=== PATIENT | male | born 1955 | race Caucasian/White ===

== ENCOUNTER 2017-09-19 09:08 | Inpatient (IN) ==
[~2017-09-19 09:08] MED LIST: ALVIMOPAN 12 MG CAPSULE PO ONE; ERTAPENEM 1,000 MG in SODIUM CHLORIDE 0.9% 50 ML IV ONE
[2017-09-19 09:42] LABS: Basophils % 0.4 % (0.0-0.8); Eosinophils # 0.2 10*3/uL (0.0-0.87); Eosinophils % 2.2 % (0.00-10.9); Hematocrit 33.7 VOL% (42.0-52.0); Hemoglobin 10.8 GM/DL (14.0-18.0); Immature Granulocytes % 0.5 %; Immature Granulocytes Absolute 0.04 #; Lymphocytes # 0.7 10*3/uL (1.4-4.0); Lymphocytes % 8.9 % (21.2-54.2); Mean Corpuscular Hemoglobin 26 PG (27-34); Mean Corpuscular Volume 81.6 FL (87-102); Mean Platelet Volume 9.4 FL (9.6-12.0); Monocytes # 0.7 10*3/uL (0.11-0.8); Monocytes % 8.7 % (1.7-12.7); Neutrophils # 6.4 10*3/uL (1.4-7.4); Neutrophils % 79.3 % (38.7-73.9); Platelet Count 309 T/CUMM (130-400); Red Blood Count 4.13 MC/CUMM (3.8-5.5); Red Cell Distribution Width 15.5 % (9.3-17.3); White Blood Count 8.1 T/CUMM (4-12)
[2017-09-19 10:17] LABS: Calcium 8.8 MG/DL (8.5-10.1); Osmolality,Calculated 274.8 MOS/KG (273-304); Potassium 3.3 MMOL/L (3.5-5.1)
[2017-09-19] MEDS ORDERED: ERTAPENEM 1,000 MG VIAL ONE (10:28)
[2017-09-19] MEDS ORDERED: ALVIMOPAN 12 MG CAPSULE ONE (10:28)
[2017-09-19] MEDS ORDERED: SODIUM CHLORIDE 0.9% 50 ML IV ONE (10:30)
[2017-09-19] MEDS ORDERED: FAMOTIDINE 20 MG TABLET ONE (10:34)
[2017-09-19] MEDS ORDERED: LORazepam 1 MG TABLET ONE (10:34)
[2017-09-19] MEDS ORDERED: FAMOTIDINE 20 MG TABLET PO STA (10:35)
[2017-09-19] MEDS ORDERED: LORazepam 1 MG TABLET PO STA (10:35)
[2017-09-19] MEDS: LACTATED RINGERS 1,000 ML IV SCH ×3 (11:00→20:36)
[2017-09-19] MEDS ORDERED: LIDOCAINE 1%/EPI INJ 20 ML VIAL ONE (12:17)
[2017-09-19] MEDS ORDERED: BUPIVACAINE 0.25% 50 ML VIAL ONE (12:17)
[2017-09-19] MEDS ORDERED: fentaNYL 100 MCG/2 ML VIAL ONE (16:48)
[2017-09-19] MEDS ORDERED: MIDAZOLAM 2 MG/2 ML VIAL ONE (16:48)
[2017-09-19] MEDS ORDERED: LACTATED RINGERS 4,000 ML IV ONE (16:48)
[2017-09-19] MEDS ORDERED: SEVOFLURANE 1 UNIT/15 MINUTE INH ONE (16:48)
[2017-09-19] MEDS ORDERED: ACETAMINOPHEN 1,000 MG/100 ML VIAL IV ONE (16:48)
[2017-09-19] MEDS ORDERED: ONDANSETRON 4 MG/2 ML VIAL IV PRN (17:03)
[2017-09-19] MEDS: HYDROmorphone 2 MG/1 ML VIAL IV PRN ×3 (17:05→17:17)
[2017-09-19] MEDS ORDERED: HYDROmorphone 2 MG/1 ML VIAL IV ONE ×2 (17:09→17:19)
[2017-09-19] MEDS ORDERED: BUPIVACAINE 0.5% /EPI 10 ML VIAL NERVEBLOCK ONE (17:16)
[2017-09-19 17:18] LABS: Apearance,Urine CLEAR (Clear); Bilirubin,Urine Negative (Negative); Blood, Urine Small mg/dL (Negative); Glucose,Urine (UA) Negative (Negative); Ketones,Urine Negative (Negative); Mucus,Urine Occasional /LPF (Occasional); Nitrite,Urine Negative (Negative); Protein,Urine Negative; RBC,Urine <1 /HPF (0-4); Urine Color Yellow (Yellow); Urine Specific Gravity 1.011 (1.001-1.035); Urine Urobilinogen < 2.0 EU/DL (0.2-1.0); WBC,Urine 2 /HPF (0-6)
[2017-09-19] MEDS ORDERED: BUPIVACAINE LIPOSOMAL 20 ML/266 MG VIAL ONE (17:22)
[2017-09-19] MEDS ORDERED: LACTATED RINGERS 1,000 ML IV ONE (19:40)
[2017-09-19 20:02] LABS: Basophils % 0.1 % (0.0-0.8); Eosinophils % 0.1 % (0.00-10.9); Hematocrit 30.9 VOL% (42.0-52.0); Immature Granulocytes % 0.1 %; Immature Granulocytes Absolute 0.01 #; Lymphocytes # 0.5 10*3/uL (1.4-4.0); Lymphocytes % 4.9 % (21.2-54.2); Mean Corpuscular HGB Conc 32.4 GM/DL (32-36); Mean Corpuscular Hemoglobin 27 PG (27-34); Mean Corpuscular Volume 82.4 FL (87-102); Mean Platelet Volume 9.6 FL (9.6-12.0); Monocytes # 0.7 10*3/uL (0.11-0.8); Monocytes % 7.2 % (1.7-12.7); Neutrophils # 8.8 10*3/uL (1.4-7.4); Neutrophils % 87.6 % (38.7-73.9); Platelet Count 276 T/CUMM (130-400); Red Blood Count 3.75 MC/CUMM (3.8-5.5); Red Cell Distribution Width 15.6 % (9.3-17.3)
[2017-09-19 20:21] LABS: Calcium 7.9 MG/DL (8.5-10.1); Magnesium 1.7 MG/DL (1.8-2.4); Osmolality,Calculated 277.7 MOS/KG (273-304); Potassium 3.3 MMOL/L (3.5-5.1)
[2017-09-19 20:31] LABS: Band Neutrophils 4 % (0-10); Lymphocytes 6 % (20-55); Platelet Estimate Adequate; Segmented Neutrophils 83 % (50-85); Total Cells Counted 100
[2017-09-19] MEDS: HYDROmorphone PCA 30 MG/30 ML SYRINGE IV SCH (20:35)
[2017-09-19 20:36] LABS: Anisocytosis Slight
[2017-09-19] MEDS: PANTOPRAZOLE 40 MG VIAL IV SCH (20:40)
[2017-09-20 05:01] LABS: Basophils % 0.2 % (0.0-0.8); Eosinophils % 0.1 % (0.00-10.9); Hematocrit 32.9 VOL% (42.0-52.0); Hemoglobin 10.4 GM/DL (14.0-18.0); Immature Granulocytes % 0.2 %; Immature Granulocytes Absolute 0.02 #; Lymphocytes # 0.7 10*3/uL (1.4-4.0); Lymphocytes % 7.7 % (21.2-54.2); Mean Corpuscular HGB Conc 31.6 GM/DL (32-36); Mean Corpuscular Hemoglobin 26 PG (27-34); Mean Corpuscular Volume 83.3 FL (87-102); Monocytes # 0.5 10*3/uL (0.11-0.8); Monocytes % 6.2 % (1.7-12.7); Neutrophils # 7.2 10*3/uL (1.4-7.4); Neutrophils % 85.6 % (38.7-73.9); Platelet Count 271 T/CUMM (130-400); Red Blood Count 3.95 MC/CUMM (3.8-5.5); Red Cell Distribution Width 15.7 % (9.3-17.3); White Blood Count 8.4 T/CUMM (4-12)
[2017-09-20] MEDS: LACTATED RINGERS 1,000 ML IV SCH (05:01)
[2017-09-20 05:21] LABS: Calcium 7.9 MG/DL (8.5-10.1); Osmolality,Calculated 281.4 MOS/KG (273-304); Potassium 3.5 MMOL/L (3.5-5.1)
[2017-09-20] MEDS: amLODIPine 10 MG TABLET PO SCH (09:11)
[2017-09-20] MEDS: PANTOPRAZOLE 40 MG VIAL IV SCH (09:11)
[2017-09-20] MEDS: ASPIRIN EC 81 MG TABLET PO SCH (09:11)
[2017-09-20] MEDS: DEXT 5% NACL 0.45% KCL 40 MEQ 40 MEQ/1,000 ML BAG IV SCH ×2 (09:12→18:16)
[2017-09-20] MEDS: NON-FORMULARY MEDICATION (Potassium [Potassium] 99 MG) PO SCH (09:13)
[2017-09-20] MEDS: ENOXAPARIN 40 MG/0.4 ML SYRINGE SUBCUT SCH (10:35)
[2017-09-21] MEDS: DEXT 5% NACL 0.45% KCL 40 MEQ 40 MEQ/1,000 ML BAG IV SCH (03:15)
[2017-09-21] MEDS: HYDROmorphone PCA 30 MG/30 ML SYRINGE IV SCH ×2 (04:34→20:01)
[2017-09-21 05:34] LABS: Basophils % 0.2 % (0.0-0.8); Eosinophils # 0.3 10*3/uL (0.0-0.87); Eosinophils % 2.6 % (0.00-10.9); Hematocrit 29.8 VOL% (42.0-52.0); Hemoglobin 9.3 GM/DL (14.0-18.0); Immature Granulocytes % 0.6 %; Immature Granulocytes Absolute 0.06 #; Lymphocytes # 0.7 10*3/uL (1.4-4.0); Lymphocytes % 7.1 % (21.2-54.2); Mean Corpuscular HGB Conc 31.2 GM/DL (32-36); Mean Corpuscular Hemoglobin 27 PG (27-34); Mean Corpuscular Volume 84.9 FL (87-102); Mean Platelet Volume 9.5 FL (9.6-12.0); Monocytes # 0.7 10*3/uL (0.11-0.8); Monocytes % 7.5 % (1.7-12.7); Neutrophils # 7.9 10*3/uL (1.4-7.4); Platelet Count 232 T/CUMM (130-400); Red Blood Count 3.51 MC/CUMM (3.8-5.5); White Blood Count 9.7 T/CUMM (4-12)
[2017-09-21 07:50] LABS: Calcium 7.7 MG/DL (8.5-10.1)
[2017-09-21 07:51] LABS: Magnesium 1.9 MG/DL (1.8-2.4)
[2017-09-21] MEDS: ASPIRIN EC 81 MG TABLET PO SCH (08:21)
[2017-09-21] MEDS: amLODIPine 10 MG TABLET PO SCH (08:22)
[2017-09-21] MEDS: PANTOPRAZOLE 40 MG VIAL IV SCH (08:22)
[2017-09-21] MEDS: NON-FORMULARY MEDICATION (Potassium [Potassium] 99 MG) PO SCH (08:24)
[2017-09-21] MEDS: ENOXAPARIN 40 MG/0.4 ML SYRINGE SUBCUT SCH (10:17)
[2017-09-21] MEDS: AMPICILLIN/SULBACTAM 1,500 MG in SODIUM CHLORIDE 0.9% 50 ML IV SCH ×3 (10:17→20:25)
[2017-09-21] MEDS: KETOROLAC 15 MG/1 ML VIAL IV SCH ×2 (15:50→20:24)
[2017-09-22 02:36] LABS: Basophils % 0.2 % (0.0-0.8); Eosinophils # 0.3 10*3/uL (0.0-0.87); Eosinophils % 3.7 % (0.00-10.9); Hematocrit 30.9 VOL% (42.0-52.0); Hemoglobin 9.5 GM/DL (14.0-18.0); Immature Granulocytes % 0.6 %; Immature Granulocytes Absolute 0.05 #; Lymphocytes # 0.4 10*3/uL (1.4-4.0); Mean Corpuscular HGB Conc 30.7 GM/DL (32-36); Mean Corpuscular Hemoglobin 26 PG (27-34); Mean Corpuscular Volume 84.2 FL (87-102); Mean Platelet Volume 9.6 FL (9.6-12.0); Monocytes # 0.6 10*3/uL (0.11-0.8); Monocytes % 6.9 % (1.7-12.7); Neutrophils % 83.6 % (38.7-73.9); Platelet Count 241 T/CUMM (130-400); Red Blood Count 3.67 MC/CUMM (3.8-5.5); Red Cell Distribution Width 15.6 % (9.3-17.3); White Blood Count 8.4 T/CUMM (4-12)
[2017-09-22 02:40] LABS: Calcium 8.1 MG/DL (8.5-10.1); Magnesium 1.5 MG/DL (1.8-2.4); Osmolality,Calculated 273.8 MOS/KG (273-304); Potassium 3.8 MMOL/L (3.5-5.1)
[2017-09-22] MEDS: AMPICILLIN/SULBACTAM 1,500 MG in SODIUM CHLORIDE 0.9% 50 ML IV SCH ×2 (02:57→09:38)
[2017-09-22] MEDS: KETOROLAC 15 MG/1 ML VIAL IV SCH ×4 (02:57→21:01)
[2017-09-22] MEDS: amLODIPine 10 MG TABLET PO SCH (09:22)
[2017-09-22] MEDS: PANTOPRAZOLE 40 MG VIAL IV SCH (09:22)
[2017-09-22] MEDS: ASPIRIN EC 81 MG TABLET PO SCH (09:22)
[2017-09-22] MEDS: NON-FORMULARY MEDICATION (Potassium [Potassium] 99 MG) PO SCH (09:24)
[2017-09-22] MEDS: ONDANSETRON 4 MG/2 ML VIAL IV PRN ×2 (09:35→15:29)
[2017-09-22] MEDS ORDERED: MAGNESIUM SULF RIDER 4 GM in PREMIX 1 EACH IV PRN (10:38)
[2017-09-22] MEDS ORDERED: MAGNESIUM SULF RIDER 2 GM in PREMIX 1 EACH IV PRN (10:38)
[2017-09-22] MEDS: ENOXAPARIN 40 MG/0.4 ML SYRINGE SUBCUT SCH (11:34)
[2017-09-22] MEDS: CIPROFLOXACIN INJ 400 MG in PREMIX 1 EACH IV SCH ×2 (11:35→21:40)
[2017-09-22] MEDS: DEXT 5% NACL 0.45% KCL 40 MEQ 40 MEQ/1,000 ML BAG IV SCH ×2 (11:43→17:30)
[2017-09-23] MEDS: DEXT 5% NACL 0.45% KCL 40 MEQ 40 MEQ/1,000 ML BAG IV SCH ×2 (03:26→08:50)
[2017-09-23] MEDS: KETOROLAC 15 MG/1 ML VIAL IV SCH ×4 (03:30→20:21)
[2017-09-23] MEDS: NON-FORMULARY MEDICATION (Potassium [Potassium] 99 MG) PO SCH (08:48)
[2017-09-23] MEDS: ASPIRIN EC 81 MG TABLET PO SCH (08:48)
[2017-09-23] MEDS: amLODIPine 10 MG TABLET PO SCH (08:48)
[2017-09-23] MEDS: PANTOPRAZOLE 40 MG VIAL IV SCH (09:01)
[2017-09-23] MEDS: HYDROmorphone 2 MG/1 ML VIAL IV PRN (09:02)
[2017-09-23] MEDS: ENOXAPARIN 40 MG/0.4 ML SYRINGE SUBCUT SCH (10:49)
[2017-09-23] MEDS: CIPROFLOXACIN INJ 400 MG in PREMIX 1 EACH IV SCH ×2 (10:50→23:56)
[2017-09-23] MEDS: metroNIDAZOLE INJ 500 MG in PREMIX 1 EACH IV SCH (16:39)
[2017-09-24] MEDS: HYDROmorphone 2 MG/1 ML VIAL IV PRN (00:50)
[2017-09-24] MEDS: metroNIDAZOLE INJ 500 MG in PREMIX 1 EACH IV SCH ×2 (02:10→09:15)
[2017-09-24] MEDS: KETOROLAC 15 MG/1 ML VIAL IV SCH ×2 (03:20→09:15)
[2017-09-24] MEDS ORDERED: PANTOPRAZOLE 40 MG TABLET PO SCH (09:00)
[2017-09-24] MEDS: ASPIRIN EC 81 MG TABLET PO SCH (09:07)
[2017-09-24] MEDS: amLODIPine 10 MG TABLET PO SCH (09:07)
[2017-09-24] MEDS: NON-FORMULARY MEDICATION (Potassium [Potassium] 99 MG) PO SCH (09:14)
[2017-09-24] MEDS: CIPROFLOXACIN INJ 400 MG in PREMIX 1 EACH IV SCH (10:33)
[2017-09-24] MEDS: ENOXAPARIN 40 MG/0.4 ML SYRINGE SUBCUT SCH (12:28)
[2017-09-24 12:46] VITALS: BP 148/89
== END 2017-09-24 14:05 | disposition home health service (06) | DRG 329 ==
LOC: N.OR 09:08 → N.SDSINP 09:11 → N.3E 18:34
PROVIDERS: ADMIT Surgery; ATTEND Surgery

== ENCOUNTER 2019-03-30 09:12 | Inpatient (IN) ==
[2019-03-30] MEDS ORDERED: HYDROmorphone 2 MG/1 ML VIAL IV STA (09:42)
[2019-03-30] MEDS ORDERED: SODIUM CHLORIDE 0.9% 500 ML IV STA (09:42)
[2019-03-30] MEDS ORDERED: ONDANSETRON 4 MG/2 ML VIAL IV STA (09:42)
[2019-03-30] MEDS ORDERED: KETOROLAC 30 MG/1 ML VIAL IV STA (09:42)
[2019-03-30 10:26] LABS: Basophils % 0.2 % (0.0-0.8); Eosinophils % 0.2 % (0.00-10.9); Hematocrit 36.5 VOL% (42.0-52.0); Hemoglobin 11.8 GM/DL (14.0-18.0); Immature Granulocytes % 0.6 %; Immature Granulocytes Absolute 0.06 #; Lymphocytes # 0.4 10*3/uL (1.4-4.0); Lymphocytes % 4.5 % (21.2-54.2); Mean Corpuscular HGB Conc 32.3 GM/DL (32-36); Mean Corpuscular Volume 89.2 FL (87-102); Mean Platelet Volume 9.7 FL (9.6-12.0); Monocytes % 11.1 % (1.7-12.7); Neutrophils % 83.4 % (38.7-73.9); Platelet Count 253 T/CUMM (130-400); Red Blood Count 4.09 MC/CUMM (3.8-5.5); Red Cell Distribution Width 16.2 % (9.3-17.3); White Blood Count 9.8 T/CUMM (4-12)
[2019-03-30 10:40] LABS: Amorphous Crystals,Urine Occasional /HPF (Few); Apearance,Urine Slightly Hazy (Clear); Bacteria,Urine Occasional /HPF (Few); Bilirubin,Urine Negative (Negative); Blood, Urine Negative (Negative); Glucose,Urine (UA) Negative (Negative); Hyaline Casts,Urine 5 /LPF (0-3); Ketones,Urine Negative (Negative); Mucus,Urine Occasional /LPF (Occasional); Nitrite,Urine Negative (Negative); Protein,Urine 30 MG/DL; RBC,Urine 1 /HPF (0-4); Sperm,Urine Few /HPF (Negative); Urine Color Yellow (Yellow); Urine Specific Gravity 1.019 (1.001-1.035); WBC,Urine 2 /HPF (0-6)
[2019-03-30 10:46] LABS: Band Neutrophils 11 % (0-10); Lymphocytes 2 % (20-55); Segmented Neutrophils 79 % (50-85); Total Cells Counted 100
[2019-03-30 10:47] LABS: Alanine Aminotransferase 65 U/L (16-61); Albumin 3.1 G/DL (3.4-5.0); Alkaline Phosphatase 387 U/L (45-117); Amylase 61 U/L (25-115); Anisocytosis Slight; Aspartate Amino Transferase 176 U/L (0-37); Blood Urea Nitrogen 30 MG/DL (7-18); Calcium 8.7 MG/DL (8.5-10.1); Glucose 111 MG/DL (74-106); Osmolality,Calculated 266.8 MOS/KG (273-304); Platelet Estimate Normal; Total Protein 6.7 G/DL (6.4-8.3)
[2019-03-30] MEDS ORDERED: SODIUM CHLORIDE 0.9% 1,000 ML IV STA (11:02)
[2019-03-30 11:50] LABS: PT Patient Result 10.8 SECS; Partial Thromboplastin Time 28.5 SECS (0-40)
[2019-03-30] MEDS: PIPERACILLIN/TAZOBACTAM 3,375 MG in SODIUM CHLORIDE 0.9% 100 ML IV SCH ×2 (12:00→21:42)
[2019-03-30] MEDS ORDERED: ONDANSETRON 4 MG/2 ML VIAL IV PRN (13:21)
[2019-03-30] MEDS ORDERED: DOCUSATE SODIUM 100 MG CAPSULE PO PRN (13:21)
[2019-03-30 13:50] LABS: Risk Ratio 5.95; VLDL CHOLESTEROL 25.4 MG/DL
[2019-03-30] MEDS: SODIUM CHLORIDE 0.9% 1,000 ML IV SCH (17:54)
[2019-03-30] MEDS: GABAPENTIN 300 MG CAPSULE PO SCH ×2 (17:56→21:42)
[2019-03-30] MEDS ORDERED: MORPHINE 4 MG/1 ML VIAL IV ONE (19:56)
[2019-03-30] MEDS: MORPHINE 4 MG/1 ML VIAL IV PRN (20:15)
[2019-03-31] MEDS: SODIUM CHLORIDE 0.9% 1,000 ML IV SCH ×3 (05:08→22:14)
[2019-03-31] MEDS: PIPERACILLIN/TAZOBACTAM 3,375 MG in SODIUM CHLORIDE 0.9% 100 ML IV SCH ×3 (05:09→22:15)
[2019-03-31 05:32] LABS: Basophils % 0.3 % (0.0-0.8); Eosinophils % 0.4 % (0.00-10.9); Hematocrit 33.8 VOL% (42.0-52.0); Hemoglobin 11.1 GM/DL (14.0-18.0); Immature Granulocytes % 0.5 %; Immature Granulocytes Absolute 0.05 #; Lymphocytes # 0.5 10*3/uL (1.4-4.0); Lymphocytes % 5.9 % (21.2-54.2); Mean Corpuscular HGB Conc 32.8 GM/DL (32-36); Mean Corpuscular Volume 89.7 FL (87-102); Mean Platelet Volume 10.1 FL (9.6-12.0); Monocytes % 11.1 % (1.7-12.7); Neutrophils % 81.8 % (38.7-73.9); Platelet Count 214 T/CUMM (130-400); Red Blood Count 3.77 MC/CUMM (3.8-5.5); Red Cell Distribution Width 16.6 % (9.3-17.3); White Blood Count 9.2 T/CUMM (4-12)
[2019-03-31 06:02] LABS: Albumin 2.4 G/DL (3.4-5.0); Bilirubin,Total 2.2 MG/DL (0.2-1.0); Osmolality,Calculated 266.5 MOS/KG (273-304); Total Protein 6.5 G/DL (6.4-8.3)
[2019-03-31] MEDS: MORPHINE 4 MG/1 ML VIAL IV PRN ×3 (09:28→18:37)
[2019-03-31] MEDS: GABAPENTIN 300 MG CAPSULE PO SCH ×4 (09:29→22:16)
[2019-03-31] MEDS: PANTOPRAZOLE 40 MG TABLET PO SCH (09:29)
[2019-03-31] MEDS: ASPIRIN EC 81 MG TABLET PO SCH (09:29)
[2019-03-31] MEDS: amLODIPine 10 MG TABLET PO SCH (11:57)
[2019-03-31] MEDS: METOPROLOL SUCCINATE XL 25 MG TABLET PO SCH (11:57)
[2019-03-31] MEDS ORDERED: PIPERACILLIN/TAZOBACTAM 3,375 MG in SODIUM CHLORIDE 0.9% 100 ML IV SCH (12:00)
[2019-04-01] MEDS: PIPERACILLIN/TAZOBACTAM 3,375 MG in SODIUM CHLORIDE 0.9% 100 ML IV SCH ×3 (04:32→19:39)
[2019-04-01] MEDS: MORPHINE 4 MG/1 ML VIAL IV PRN ×3 (04:43→16:56)
[2019-04-01] MEDS: SODIUM CHLORIDE 0.9% 1,000 ML IV SCH ×3 (06:57→22:01)
[2019-04-01] MEDS ORDERED: fentaNYL 25 MCG/HR PATCH TRANSDERM SCH (09:00)
[2019-04-01] MEDS: METOPROLOL SUCCINATE XL 25 MG TABLET PO SCH (09:35)
[2019-04-01] MEDS: ASPIRIN EC 81 MG TABLET PO SCH (09:35)
[2019-04-01] MEDS: PANTOPRAZOLE 40 MG TABLET PO SCH (09:35)
[2019-04-01] MEDS: amLODIPine 10 MG TABLET PO SCH (09:35)
[2019-04-01] MEDS: GABAPENTIN 300 MG CAPSULE PO SCH ×4 (09:35→22:03)
[2019-04-01] MEDS ORDERED: MORPHINE ER 30 MG TABLET PO SCH (21:00)
[2019-04-02] MEDS: PIPERACILLIN/TAZOBACTAM 3,375 MG in SODIUM CHLORIDE 0.9% 100 ML IV SCH ×2 (04:46→12:03)
[2019-04-02] MEDS: MORPHINE 4 MG/1 ML VIAL IV PRN ×3 (07:26→21:58)
[2019-04-02] MEDS ORDERED: MAGNESIUM HYDROXIDE SUSP 30 ML UDCUP PO PRN (08:32)
[2019-04-02] MEDS ORDERED: MYLANTA/LIDO VISC 2:1 300 ML BOTTLE SWISH/SPIT PRN (08:32)
[2019-04-02] MEDS ORDERED: BENZTROPINE 2 MG/2 ML AMP IV PRN (08:32)
[2019-04-02] MEDS ORDERED: guaiFENesin 200 MG/10 ML UDCUP PO PRN (08:32)
[2019-04-02] MEDS ORDERED: ALPRAZolam 0.25 MG TABLET PO PRN (08:32)
[2019-04-02] MEDS ORDERED: diphenhydrAMINE CAP 25 MG CAPSULE PO PRN (08:32)
[2019-04-02] MEDS ORDERED: chlorproMAZINE INJ 25 MG in SODIUM CHLORIDE 0.9% 100 ML IV PRN (08:32)
[2019-04-02] MEDS ORDERED: ONDANSETRON 4 MG/2 ML VIAL IV PRN (08:32)
[2019-04-02] MEDS ORDERED: traMADol 50 MG TABLET PO PRN (08:32)
[2019-04-02] MEDS ORDERED: ALUMINUM/MAGNES/SIMETH MAX STR 30 ML UDCUP PO PRN (08:32)
[2019-04-02] MEDS ORDERED: LACTULOSE 20 GM/30 ML UDCUP PO PRN (08:32)
[2019-04-02] MEDS ORDERED: ACETAMINOPHEN 325 MG TABLET PO PRN (08:32)
[2019-04-02] MEDS ORDERED: PROMETHAZINE INJ 25 MG in SODIUM CHLORIDE 0.9% 50 ML IV PRN (08:32)
[2019-04-02] MEDS ORDERED: TEMAZEPAM 7.5 MG CAPSULE PO PRN (08:32)
[2019-04-02] MEDS ORDERED: chlorproMAZINE INJ 50 MG in SODIUM CHLORIDE 0.9% 100 ML IV PRN (08:32)
[2019-04-02] MEDS ORDERED: MYLANTA/LIDO VISC 2:1 300 ML BOTTLE SWISH/SWAL PRN (08:32)
[2019-04-02] MEDS ORDERED: chlorproMAZINE 25 MG TABLET PO PRN (08:32)
[2019-04-02] MEDS ORDERED: LOPERAMIDE 2 MG CAPSULE PO PRN ×2 (08:32)
[2019-04-02] MEDS ORDERED: fentaNYL 50 MCG/HR PATCH TRANSDERM SCH (09:00)
[2019-04-02] MEDS: PANTOPRAZOLE 40 MG TABLET PO SCH (09:23)
[2019-04-02] MEDS: ASPIRIN EC 81 MG TABLET PO SCH (09:23)
[2019-04-02] MEDS: amLODIPine 10 MG TABLET PO SCH (09:23)
[2019-04-02] MEDS: GABAPENTIN 300 MG CAPSULE PO SCH ×4 (09:23→20:53)
[2019-04-02] MEDS: METOPROLOL SUCCINATE XL 25 MG TABLET PO SCH (09:23)
[2019-04-02] MEDS: SODIUM CHLORIDE 0.9% 1,000 ML IV SCH ×2 (13:16→16:36)
[2019-04-02] MEDS: DOCUSATE SODIUM 100 MG CAPSULE PO SCH (20:53)
[2019-04-02] MEDS: POLYETHYLENE GLYCOL POWDER 17 GM PACK PO SCH (20:53)
[2019-04-02] MEDS: DOXEPIN 25 MG CAPSULE PO SCH (20:53)
[2019-04-03] MEDS: SODIUM CHLORIDE 0.9% 1,000 ML IV SCH ×3 (01:59→21:55)
[2019-04-03] MEDS ORDERED: LACTULOSE 20 GM/30 ML UDCUP PO SCH (08:30)
[2019-04-03] MEDS ORDERED: MINERAL OIL 30 ML UDCUP PO ONE (09:43)
[2019-04-03] MEDS: GABAPENTIN 300 MG CAPSULE PO SCH ×4 (09:51→21:01)
[2019-04-03] MEDS: PANTOPRAZOLE 40 MG TABLET PO SCH (09:51)
[2019-04-03] MEDS: DOCUSATE SODIUM 100 MG CAPSULE PO SCH ×2 (09:51→21:01)
[2019-04-03] MEDS: amLODIPine 10 MG TABLET PO SCH (09:51)
[2019-04-03] MEDS: ENOXAPARIN 40 MG/0.4 ML SYRINGE SUBCUT SCH (09:51)
[2019-04-03] MEDS: METOPROLOL SUCCINATE XL 25 MG TABLET PO SCH (09:51)
[2019-04-03] MEDS: POLYETHYLENE GLYCOL POWDER 17 GM PACK PO SCH ×2 (10:07→21:01)
[2019-04-03] MEDS: ASPIRIN EC 81 MG TABLET PO SCH (10:07)
[2019-04-03] MEDS ORDERED: CYANOCOBALAMIN 1000 MCG/1 ML VIAL IM SCH (10:30)
[2019-04-03] MEDS: MORPHINE 4 MG/1 ML VIAL IV PRN (11:57)
[2019-04-03] MEDS ORDERED: fentaNYL 75 MCG/HR PATCH TRANSDERM SCH (17:30)
[2019-04-03] MEDS ORDERED: SENNA 8.6 MG TABLET PO SCH (21:00)
[2019-04-03] MEDS: DOXEPIN 25 MG CAPSULE PO SCH (21:01)
[2019-04-04 05:55] LABS: Basophils % 0.4 % (0.0-0.8); Eosinophils # 0.3 10*3/uL (0.0-0.87); Hematocrit 32.8 VOL% (42.0-52.0); Hemoglobin 10.2 GM/DL (14.0-18.0); Immature Granulocytes Absolute 0.05 #; Lymphocytes # 0.6 10*3/uL (1.4-4.0); Lymphocytes % 11.2 % (21.2-54.2); Mean Corpuscular HGB Conc 31.1 GM/DL (32-36); Mean Corpuscular Volume 93.4 FL (87-102); Mean Platelet Volume 10.1 FL (9.6-12.0); Neutrophils % 69.4 % (38.7-73.9); Platelet Count 220 T/CUMM (130-400); Red Blood Count 3.51 MC/CUMM (3.8-5.5); Red Cell Distribution Width 16.8 % (9.3-17.3)
[2019-04-04] MEDS: SODIUM CHLORIDE 0.9% 1,000 ML IV SCH (06:05)
[2019-04-04 06:14] LABS: Calcium 7.9 MG/DL (8.5-10.1); Osmolality,Calculated 269.8 MOS/KG (273-304)
[2019-04-04 08:08] VITALS: BP 167/75
[2019-04-04] MEDS: METOPROLOL SUCCINATE XL 25 MG TABLET PO SCH (08:38)
[2019-04-04] MEDS: GABAPENTIN 300 MG CAPSULE PO SCH (08:39)
[2019-04-04] MEDS: DOCUSATE SODIUM 100 MG CAPSULE PO SCH (08:40)
[2019-04-04] MEDS: POLYETHYLENE GLYCOL POWDER 17 GM PACK PO SCH (08:40)
[2019-04-04] MEDS: amLODIPine 10 MG TABLET PO SCH (08:40)
[2019-04-04] MEDS: PANTOPRAZOLE 40 MG TABLET PO SCH (08:40)
[2019-04-04] MEDS: ENOXAPARIN 40 MG/0.4 ML SYRINGE SUBCUT SCH (08:40)
[2019-04-04] MEDS: ASPIRIN EC 81 MG TABLET PO SCH (08:40)
[2019-04-04] MEDS ORDERED: HEPARIN LOCK FLUSH 500 UNIT/5 ML SYRINGE IV ONE (10:26)
== END 2019-04-04 11:52 | disposition home or self-care (01) | DRG 375 ==
LOC: N.ED 09:12 → SUATTDRO 13:21 → N.EDINP 13:21 → N.4E 15:15
PROVIDERS: ADMIT Internal Medicine; ATTEND Hospitalist